=== PATIENT | female | born 1965 ===

== ENCOUNTER 2016-09-28 13:52 | Emergency (ER) | payer MEDICARE, MEDICAID ==
[2016-09-28 15:09] VITALS: BP 159/90
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
== END 2016-09-28 17:00 | disposition home or self-care (01) ==
LOC: UCCORT 13:52
DX: B36.0 Pityriasis versicolor (principal); R01.1 Cardiac murmur, unspecified; J44.9 Chronic obstructive pulmonary disease, unspecified; Z11.4 Encounter for screening for human immunodeficiency virus [HIV]; Z88.5 Allergy status to narcotic agent; Z88.1 Allergy status to other antibiotic agents; Z87.891 Personal history of nicotine dependence
CPT/HCPCS: 36415; 86703; 86803; 99202; G0463